=== PATIENT | female | born 1950 | race Caucasian/White ===

== ENCOUNTER 2017-04-10 11:44 | Emergency (ER) | payer OTHER ==
[~2017-04-10] VITALS: Ht 157.5 cm; Wt 90.4 kg
[2017-04-10] MEDS ORDERED: PERCOCET 5/31 TABLET PO (14:07)
[2017-04-10 14:26] VITALS: BP 142/79
== END 2017-04-10 14:28 | disposition home or self-care (01) ==
LOC: EME 11:44
DX: S30.0XXA Contusion of lower back and pelvis, initial encounter (principal); M25.551 Pain in right hip; W10.9XXA Fall (on) (from) unspecified stairs and steps, initial encounter; I10 Essential (primary) hypertension; F17.200 Nicotine dependence, unspecified, uncomplicated
CPT/HCPCS: 72100; 73521; 99281; 99283